=== PATIENT | female | born 1995 ===

== ENCOUNTER 2023-07-13 02:34 | Inpatient (IN) ==
[2023-07-13] MEDS ORDERED: OXYTOCIN 30 UNITS/NSS 30 UNITS/500 ML BAG IV PRN ×2 (06:04→16:46)
[2023-07-13] MEDS ORDERED: LIDOCAINE 1% LOCAL 20 ML VIAL INFIL PRN (06:04)
[2023-07-13] MEDS: LACTATED RINGER'S 1,000 ML IV PRN (06:27)
[2023-07-13 06:43] LABS: Hematocrit (blood only) 37.6 % (37.0-47.0); Hemoglobin 12.9 g/dl (12.0-16.0); Mean Corpuscular Hemoglobin 32.1 pg (25.0-34.0); Mean Corpuscular Hgb Conc 34.3 g/dL (32.0-36.0); Mean Corpuscular Volume 93.5 fL (80.0-100.0); Platelet Count 101 K/uL (130-400); RDW Coefficient of Variation 13.6 % (11.5-14.5); RDW Standard Deviation 46.4 fL (36.4-46.3); Red Blood Count 4.02 M/uL (4.20-5.40); White Blood Count 12.52 K/ul (4.8-10.8)
--- NOTE | 2023-07-13 06:58 | History & Physical Report ---
Date of Service July 13, 2023 Assessment & Plan (1) Thrombocytopenia affecting : (2) Active labor: Plan 27 yo at 40 1/7 wga presents in labor VSS Fetus cat 1 Labor - augment prn GBS neg GT - will check cbc epdiural desired Admission and Anticipated Discharge Date Admission Date: July 13, 2023 History of Present Illness Chief Complaint: 27 yo at 40 1/7 wga presents w/ ctx increasing in frequency and intensity. Slowly been worsening since appt this afternoon. Approx same amount of pink fluid and quality, no lof/vb otherwise. +FM PNI: Gest thrombocytopenia Hypothyroid Primary Care Provider: NO PCP Allergies Allergy/AdvReac Type Severity Reaction Status Date / Time No Known Allergies Allergy Verified 07/12/23 11:04 Home Medications Medication Instructions Recorded Confirmed Type levothyroxine See Rx Instructions .Route .COMPLEX 06/22/23 07/13/23 History magnesium 400 mg PO 1XD 06/22/23 07/13/23 History 21-iron fu-folic acid 1 tab PO 1XD 06/22/23 07/13/23 History [ Complete] Patient History Medical History (Updated 07/13/23 @ 06:57 by Roma Choi MD) History of chicken pox Varicella vaccination Surgical History (Updated 06/22/23 @ 15:26 by Hoda Ontiveros) Status post surgery dental implants Family History Mother Hypothyroid Denies family history of Ovarian cancer Breast cancer Colorectal cancer Social History (Updated 06/22/23 @ 15:04 by Hoda Ontiveros) Smoking Status: Never smoker Do You Dip or Chew Tobacco: No; Hx Alcohol Use: No Hx Substance Use: No Preferred Language: Yakut Communication Ability: Effective Defense Travel Administrator Required: No Beliefs That Will Affect Care: None marital status: marital status details: Faisal Elkins (29) [phone] Current Living Situation: Spouse Current Living Situation Comment: lives with spouse, cat-spouse changing litter current occupational status: employed current occupation: [employer] Other Information That Helps Us Care for You: No Feels Safe at Home: Yes Safety Concerns: Feels Safe At This Time Assistive Devices: None Physical Exam Genitourinary: OB Exam Monitor Tracing: + external FHT monitor used, + external uterine monitor used and + category I SVE 2/75/-2 > 3/75/-2 by nursing Results & Data Vital Signs (Past 12 Hours) Vital Signs Temp Pulse Resp BP Pulse Ox 07/13/23 06:51 75 99 07/13/23 06:46 84 100 07/13/23 06:41 78 100 07/13/23 06:32 71 116/65 07/13/23 06:31 16 07/13/23 06:31 97.7 F 16 07/13/23 02:59 97.5 F L 16 07/13/23 02:55 75 133/83 Laboratory Results Initial OB Labs 11/23/22 Blood Type & RH A positive Antibody Screen negative HCT/HGB 37.2/13.2 Platelets 142 Hep C IgG 13yrs+ Old negative Pap Test Chlamydia negative Gonorrhea negative Rubella immune RPR non-reactive Urine Culture/Screen negative HBsAg non-reactive HIV non- reactive MCV 88.2 Ultrasound 24-28 Week OB Labs 04/15/23 HCT/HGB 35.7/11.9 Diabetes Screen (1hr) 121 2HR GTT (if screen abnormal) Antibody Screen Urine Culture/Screen >100,000 klebsiella GBS neg Code Status & VTE Plan VTE Prophylaxis Plan VTE Prophylaxis will be ordered: No Reason for no VTE drug order: Treatment not indicated Coding Level of Care Code None Diagnoses Thrombocytopenia affecting O99.119; D69.6 Active labor
[2023-07-13] MEDS ORDERED: NALOXONE HCL 0.4 MG/1 ML VIAL/CARP IV PRN (07:03)
[2023-07-13] MEDS ORDERED: ROPIVACAINE 0.5% PF 5 MG/ML 20 ML VIAL EPI PRN (07:03)
[2023-07-13] MEDS ORDERED: SODIUM CHLORIDE 0.9% PF INJ 10 ML VIAL EPI PRN (07:03)
[2023-07-13] MEDS ORDERED: NALOXONE HCL 1 MG in SODIUM CHLORIDE 0.9% 1,000 ML IV PRN (07:03)
[2023-07-13] MEDS ORDERED: LIDOCAINE 2%/EPINEPHRINE 1:200,000 20 ML PF EPI STA (07:03)
[2023-07-13] MEDS ORDERED: BUPIVACAINE 0.25% PF 30 ML VIAL EPI PRN (07:03)
[2023-07-13] MEDS ORDERED: fentaNYL citrate PF 100 MCG/2 ML VIAL EPI PRN (07:03)
[2023-07-13] MEDS ORDERED: LIDOCAINE 2% MPF LOCAL 5 ML VIAL EPI PRN (07:03)
[2023-07-13] MEDS ORDERED: NALBUPHINE HCL 5 MG in SYRINGE 0 ML IV PRN (07:03)
[2023-07-13] MEDS ORDERED: fentaNYL citrate PF 100 MCG/2 ML VIAL EPI STA (07:03)
[2023-07-13] MEDS ORDERED: ePHEDrine sulfate 50 MG/ML AMP IV PRN (07:03)
[2023-07-13] MEDS ORDERED: SODIUM CHLORIDE 0.9% PF INJ 10 ML VIAL EPI STA (07:03)
[2023-07-13] MEDS ORDERED: BUPIVACAINE 0.25% PF 30 ML VIAL EPI STA (07:03)
[2023-07-13] MEDS ORDERED: diphenhydrAMINE 50 MG/ML VIAL IV PRN (07:03)
--- NOTE | 2023-07-13 07:06 | Anesthesiology Consultation ---
Date of Service July 13, 2023 Assessment & Plan Chart Review Chart Review: Patient NOT seen in Pre Admission Testing and Acceptable Risk for Labor Epidural Consults Requested none ASA ASA2 Proposed Anesthesia Anesthesia Type: Labor Epidural Risk / Benefits Reviewed With: PT / POA / Parent / Guardian, Accepts Plan and Informed Consent Obtained History Height/Weight Height: 5 ft 5 in Weight: 73.028 kg Allergies Allergy/AdvReac Type Severity Reaction Status Date / Time No Known Allergies Allergy Verified 07/12/23 11:04 Medications Home Medications Medication Instructions Recorded Confirmed Last Taken levothyroxine See Rx Instructions .Route .COMPLEX 06/22/23 07/13/23 07/12/23 05:30 magnesium 400 mg PO 1XD 06/22/23 07/13/23 07/12/23 21:00 21-iron fu-folic acid 1 tab PO 1XD 06/22/23 07/13/23 07/12/23 21:00 [ Complete] Active Medications Generic Name Dose Route Start Last Admin Trade Name Freq PRN Reason Stop Dose Admin Lactated Ringer's 1,000 mls @ 125 mls/hr 07/13/23 06:04 07/13/23 06:27 Lr IV 07/15/23 06:03 999 mls/hr .Q8H PRN Administration L&D Protocol Protocol NPO Date Last Intake of Fluids: 07/13/23 Time Last Intake of Fluids: 06:45 Date Last Intake of Solids: 07/12/23 Time Last Intake of Solids: 18:00 Past Medical History Medical History History of chicken pox Varicella vaccination Exercise / Class Metabolic Activity II 4-5 Yardwork/Stairs/Walk up hill Past Family History Family History Mother Hypothyroid Denies family history of Ovarian cancer Breast cancer Colorectal cancer Past Surgical History Surgical History Status post surgery dental implants Past Anesthesia History No Hx of Anesthesia Complications and No Family Hx of Anesthesia Complications History of PONV No Hx of PONV and No Hx of Motion Sickness Social History Smoking Status: Never smoker Do You Dip or Chew Tobacco: No Hx Alcohol Use: No Hx Substance Use: No Review of Systems ROS Unobtainable: All systems reviewed & are unremarkable except as noted in HPI & below Physical Exam Vital Signs Last Vital Signs Temp 36.5 C 07/13/23 06:31 Pulse 97 H 07/13/23 07:01 Resp 16 07/13/23 06:31 BP 116/65 07/13/23 06:32 Pulse Ox 100 07/13/23 07:01 ENMT Mouth: no TMJ abnormality Thyromental Distance: > or= 3.5 Finger Breadths Mallampati Class: II Neck normal visual inspection and trachea midline; neck extension not limited Respiratory normal respiratory effort Auscultation: lungs clear to auscultation bilaterally Cardiovascular Rate/Rhythm: regular rate and regular rhythm Heart Sounds: no murmur Musculoskeletal Spine: normal cervical ROM Extremities: full ROM of extremities Neurologic moves all extremities Psychiatric Orientation: alert and oriented x 3 Testing Laboratory Results 07/13/23 06:22
[2023-07-13] MEDS: LIDOCAINE 2%/EPINEPHRINE 1:200,000 20 ML PF ONE (07:24)
[2023-07-13] MEDS: BUPIVACAINE 0.25% PF 30 ML VIAL ONE (07:24)
[2023-07-13] MEDS: SODIUM CHLORIDE 0.9% PF INJ 10 ML VIAL ONE (07:24)
[2023-07-13] MEDS: fentANYL 2 MCG/ML BUPIVacaine 0.125%-NSS 100ML BAG ONE (07:25)
[2023-07-13] MEDS: fentaNYL citrate PF 100 MCG/2 ML VIAL ONE (07:48)
[2023-07-13] MEDS: ePHEDrine sulfate 50 MG/ML AMP ONE (07:48)
[2023-07-13] MEDS: OXYTOCIN 30 UNITS/NSS 30 UNITS/500 ML BAG IV PRN (09:31)
--- NOTE | 2023-07-13 10:20 | Labor Progress Brief Note ---
Date of Service July 13, 2023 Subjective Delayed entry due to concurrent patient care. Comfortable. ROM has occurred since prior check; pink/clear fluid on chux. Assessment & Plan (1) Active labor: Plan: Augment with pitocin (2) Thrombocytopenia affecting : Plan: Plts 101, epidural established. Admission and Anticipated Discharge Date Admission Date: July 13, 2023 Physical Exam Genitourinary: /-1 Clear fluid leakage [place] irreg, ~q4 Results & Data Vital Signs (Past 12 Hours) Vital Signs Temp Pulse Resp BP Pulse Ox 07/13/23 10:18 74 114/70 07/13/23 10:16 73 98 07/13/23 10:11 75 99 07/13/23 10:06 81 99 07/13/23 10:04 77 120/68 07/13/23 10:01 81 98 07/13/23 09:56 77 97 07/13/23 09:51 74 98 07/13/23 09:48 71 112/66 07/13/23 09:46 72 98 07/13/23 09:41 74 98 07/13/23 09:36 76 98 07/13/23 09:33 77 117/74 07/13/23 09:31 83 98 07/13/23 09:30 16 07/13/23 09:30 16 07/13/23 09:26 74 98 07/13/23 09:21 73 99 07/13/23 09:18 72 113/63 07/13/23 09:16 82 98 07/13/23 09:11 84 98 07/13/23 09:06 80 98 07/13/23 09:05 16 07/13/23 09:05 97.9 F 16 07/13/23 09:03 81 07/13/23 09:03 84 110/59 L 92 07/13/23 09:01 83 98 07/13/23 09:00 16 07/13/23 09:00 16 07/13/23 08:56 84 97 07/13/23 08:51 85 98 07/13/23 08:48 118 H 108/59 L 93 07/13/23 08:46 84 95 07/13/23 08:41 102 H 97 07/13/23 08:36 91 H 98 07/13/23 08:33 114 H 111/70 07/13/23 08:31 94 H 96 07/13/23 08:30 16 07/13/23 08:30 16 07/13/23 08:26 94 H 96 07/13/23 08:21 98 H 96 07/13/23 08:18 97 H 107/66 07/13/23 08:16 110 H 97 07/13/23 08:11 86 98 07/13/23 08:06 85 96 07/13/23 08:03 108 H 135/71 07/13/23 08:01 87 97 07/13/23 08:00 16 07/13/23 08:00 16 07/13/23 07:56 96 H 97 07/13/23 07:51 95 H 97 07/13/23 07:47 79 116/78 07/13/23 07:46 94 H 97 07/13/23 07:43 93 H 132/90 07/13/23 07:42 16 07/13/23 07:42 16 07/13/23 07:41 90 98 07/13/23 07:38 80 128/76 07/13/23 07:36 87 98 07/13/23 07:33 18 07/13/23 07:33 18 07/13/23 07:32 94 H 120/73 07/13/23 07:31 87 96 07/13/23 07:30 81 118/72 07/13/23 07:29 16 07/13/23 07:29 16 07/13/23 07:28 98 H 116/73 07/13/23 07:26 99 H 117/71 98 07/13/23 07:24 94 H 117/70 07/13/23 07:23 16 07/13/23 07:23 16 07/13/23 07:22 79 123/75 07/13/23 07:21 88 99 07/13/23 07:20 116 H 109/83 07/13/23 07:16 95 H 98 07/13/23 07:11 96 H 99 07/13/23 07:06 94 H 100 07/13/23 07:05 98.4 F 18 07/13/23 07:01 97 H 100 07/13/23 06:56 94 H 100 07/13/23 06:51 75 99 07/13/23 06:46 84 100 07/13/23 06:41 78 100 07/13/23 06:32 71 116/65 07/13/23 06:31 16 07/13/23 06:31 97.7 F 16 07/13/23 02:59 97.5 F L 07/13/23 02:55 75 133/83 Coding Level of Care Code None Diagnoses Active labor Thrombocytopenia affecting O99.119; D69.6
[2023-07-13] MEDS: fentANYL 2 MCG/ML BUPIVacaine 0.125%-NSS 100ML BAG EPI PRN (13:28)
--- NOTE | 2023-07-13 15:11 | Communication Note ---
Date of Service: July 13, 2023 Comfortable with epidural. Per RN recent cvx check 9cm. [facility] Cat 1 [place] Q2-3 Pit @ 10 Cont curr mgmt.
[2023-07-13] MEDS: METHYLERGONOVINE MALEATE 0.2 MG/ML AMP ONE (16:36)
[2023-07-13] MEDS: miSOPROStoL 200 MCG TAB ONE (16:37)
--- NOTE | 2023-07-13 16:42 | Delivery Summary ---
Vaginal Delivery Summary Date of Service July 13, 2023 Vaginal Delivery Summary DIAGNOSES: 1. [place] intrauterine at 40w1d gestation. 2. Spontaneous onset of labor. 3. Group B Streptococcus Neg. PROCEDURE: Spontaneous vaginal delivery and repair of 2nd deg laceration. SURGEON: Jill Colunga MD. AUTOMATION LEAD: None. QUANTITATIVE BLOOD LOSS: 152 mL. COMPLICATIONS: None. PLACENTA: Spontaneous and intact with a 3-vessel cord. DISPOSITION: Stable to labor and delivery. DESCRIPTION: The patient pushed well and brought the head to in DOA position. The infant's head was allowed to deliver with contraction force and no further active pushing, with the perineum protected during this time. There was no nuchal cord. The right shoulder was anterior. The shoulders and body delivered without any difficulty, and the infant was placed on the maternal abdomen. It was vigorous and moving all extremities, and making respiratory efforts. The cord was doubly clamped by the MD and then cut by the FOB. The placenta delivered spontaneously and was noted to be intact and with a 3VC. The cervix, vagina and perineum were examined and were found to have a shallow second-degree laceration which was repaired in the usual manner with vicryl suture. The fundus was firm and lochia minimal immediately after delivery. [facility] Vaginal Delivery Charge Vaginal Delivery Codes: 60442 global code for the antepartum, delivery, and post-
[2023-07-13] MEDS ORDERED: ACETAMINOPHEN 325 MG TAB PO PRN (16:46)
[2023-07-13] MEDS ORDERED: HYDROCORTISONE ACETATE 25 MG SUPP PR PRN (16:46)
[2023-07-13] MEDS ORDERED: BENZOCAINE 20% SPRY 85 APPLN/85 GM CAN EXT PRN (16:46)
[2023-07-13] MEDS ORDERED: DIPHTHER/TETAN/PERTUS Vaccine (Tdap, Adol/Adult) 0.5mL IM ONE (16:46)
[2023-07-13] MEDS ORDERED: bisacodyL 10 MG SUPP PR PRN (16:46)
[2023-07-13] MEDS ORDERED: LACTATED RINGER'S 1,000 ML IV SCH (16:46)
--- NOTE | 2023-07-13 17:57 | Anesthesia Procedure Note ---
Date of Service July 13, 2023 Anesthesia Post Epidural Note Vital Signs Vital Signs: Temp Pulse Resp BP Pulse Ox 37.1 C 91 H 18 122/74 96 07/13/23 16:45 07/13/23 17:33 07/13/23 16:45 07/13/23 17:33 07/13/23 16:36 Pain Intensity Abdomen: Pain Intensity: 8 Notes Mental Status: alert / awake / arousable and participated in evaluation Nausea / Vomiting: adequately controlled Pain: adequately controlled Airway Patency, RR, SpO2: stable & adequate BP & HR: stable & adequate Hydration State: stable & adequate Neuraxial Anesthesia: was administered and sensory block is resolving Anesthetic Complications: no major complications apparent Epidural: Removed without complications and With tip intact
[2023-07-13] MEDS: DOCUSATE SODIUM 100 MG CAP PO SCH (22:52)
[2023-07-13] MEDS: IBUPROFEN 600 MG TAB PO PRN (22:52)
--- NOTE | 2023-07-14 05:56 | Obstetrical Progress Note ---
Date of Service <Mushtaq Myers - Last Filed: 07/14/23 06:57> July 14, 2023 Assessment & Plan <Mushtaq Myers - Last Filed: 07/14/23 06:57> (1) Encounter for assessment: Plan 27 y/o PPD#1: Eating well, voiding well, ambulating well Vitals reviewed, WNL Pain well controlled with Motrin Routine post care - OOB, ambulation, diet progression as tolerated Will have 6 week follow up with Dr. Colunga <Jill Colunga MD - Last Filed: 07/14/23 07:33> (1) Encounter for assessment: Plan 27 y/o PPD#1: Eating well, voiding well, ambulating well Vitals reviewed, WNL Pain well controlled with Motrin Routine post care - OOB, ambulation, diet progression as tolerated Will have 6 week follow up with Dr. Colunga Subjective <Mushtaq Myers - Last Filed: 07/14/23 06:57> Ambulation: ambulating normally Voiding: no voiding problems Passing Gas:: Yes Diet Tolerance:: regular diet (initially with some nausea/vomiting, since resolved) Lochia:: Small Feeding Type:: breast feeding (supplementing with formula ) Pain well controlled with Motrin Notes small hematoma formation at site of laceration repair Review of Systems -Denies fever or chills -Denies dyspnea, chest pain, or palpitations -Denies dysuria -Denies headache or changes in vision Physical Exam <Mushtaq Myers - Last Filed: 07/14/23 06:57> General: Alert and oriented. No acute distress Cardiac: Regular rate and rhythm, no murmurs appreciated Respiratory: Lungs clear to auscultation bilaterally, No increased work of breathing Abdominal: Soft, non-tender, non-distended. Bowel sounds present. Uterus: Uterine fundus firm, palpable below umbilicus Extremities: No lower extremity edema, calves non-tender bilaterally Results & Data <Mushtaq Myers - Last Filed: 07/14/23 06:57> Vital Signs (Past 12 Hours) Vital Signs Temp Pulse Pulse Resp BP BP Pulse Ox 07/14/23 03:50 36.6 C 95 H 18 115/78 96 07/14/23 00:20 36.7 C 82 18 115/74 99 07/13/23 21:15 36.9 C 82 18 115/74 99 07/13/23 19:50 37.5 C 90 18 127/72 07/13/23 19:40 90 127/72 07/13/23 19:01 37.8 C H 18 07/13/23 19:01 07/13/23 18:45 37.4 C 16 07/13/23 18:45 83 129/73 07/13/23 18:33 105 H 127/75 07/13/23 18:18 103 H 127/72 07/13/23 18:03 99 H 120/69 O2 Del Method 07/14/23 03:50 Room Air 07/14/23 00:20 Room Air 07/13/23 21:15 Room Air 07/13/23 19:50 07/13/23 19:40 07/13/23 19:01 07/13/23 19:01 Room Air 07/13/23 18:45 07/13/23 18:45 07/13/23 18:33 07/13/23 18:18 07/13/23 18:03 Supervising Physician <Jill Colunga MD - Last Filed: 07/14/23 07:33> Co-Signing Physician Notes Resident Physician Supervision Note: I interviewed and examined the patient. Discussed with Dr. Myers and agree with findings and plan as documented in the note. Any exceptions or clarifications are listed here: [ ] Documented By: Jill Colunga MD, FACOG Resident Activity Tracking <Mushtaq Myers DO - Last Filed: 07/14/23 06:57> Resident Involvement: Resident Care Provided Care Provided: OB Delivery
[2023-07-14 06:43] LABS: Hematocrit (blood only) 34.7 % (37.0-47.0); Hemoglobin 11.7 g/dl (12.0-16.0); Mean Corpuscular Hemoglobin 31.8 pg (25.0-34.0); Mean Corpuscular Hgb Conc 33.7 g/dL (32.0-36.0); Mean Corpuscular Volume 94.3 fL (80.0-100.0); Mean Platelet Volume 9.1 fL (9.4-12.4); Platelet Count 118 K/uL (130-400); RDW Coefficient of Variation 13.6 % (11.5-14.5); RDW Standard Deviation 46.6 fL (36.4-46.3); Red Blood Count 3.68 M/uL (4.20-5.40); White Blood Count 13.58 K/ul (4.8-10.8)
[2023-07-14] MEDS: PRENATAL VITAMIN 1 TAB PO SCH (08:42)
[2023-07-14] MEDS ORDERED: Nursing to Pharmacy Communication SCH (11:30)
[2023-07-14] MEDS: LEVOTHYROXINE SODIUM 50 MCG TABLET PO ONE (12:17)
[2023-07-14] MEDS: bisacodyL 5 MG TABEC PO SCH (20:27)
--- NOTE | 2023-07-15 06:34 | Obstetrical Progress Note ---
Date of Service <Mushtaq Myers DO - Last Filed: 07/15/23 06:34> July 15, 2023 Assessment & Plan <Mushtaq Myers DO - Last Filed: 07/15/23 06:34> (1) Encounter for assessment: visit type: exam and care immediately after delivery Qualified Code(s): Z39.0 - Encounter for care and examination of mother immediately after delivery Plan 27 y/o PPD#2: Eating well, voiding well, ambulating well Vitals reviewed, WNL Pain well controlled with Motrin Routine post care - OOB, ambulation, diet progression as tolerated Will have 6 week follow up with Dr. Colunga <Rupali Martin MD, FACOG - Last Filed: 07/15/23 08:48> (1) Encounter for assessment: Subjective <Mushtaq Myers DO - Last Filed: 07/15/23 06:34> Ambulation: ambulating normally Voiding: no voiding problems Passing Gas:: Yes Diet Tolerance:: regular diet Lochia:: Small Feeding Type:: breast feeding Pain well controlled with Motrin Review of Systems -Denies fever or chills -Denies dyspnea, chest pain, or palpitations -Denies dysuria -Denies headache or changes in vision Physical Exam <Mushtaq Myers DO - Last Filed: 07/15/23 06:34> General: Alert and oriented. No acute distress Cardiac: Regular rate and rhythm, no murmurs appreciated Respiratory: Lungs clear to auscultation bilaterally, No increased work of breathing Abdominal: Soft, non-tender, non-distended. Bowel sounds present. Uterus: Uterine fundus firm, palpable below umbilicus Extremities: No lower extremity edema, calves non-tender bilaterally Results & Data <Mushtaq Myers DO - Last Filed: 07/15/23 06:34> Vital Signs (Past 12 Hours) Vital Signs Temp Pulse Resp BP Pulse Ox O2 Del Method 07/14/23 23:16 36.5 C 74 18 104/84 97 Room Air 07/14/23 20:15 36.6 C 83 18 100/67 Supervising Physician <Rupali Martin MD, FACOG - Last Filed: 07/15/23 08:48> Co-Signing Physician Notes Resident Physician Supervision Note: I interviewed and examined the patient. Discussed with Dr. Myers and agree with findings and plan as documented in the note. Any exceptions or clarifications are listed here: [None] Documented By: Rupali Martin MD, FACOG Resident Activity Tracking <Mushtaq Myers, - Last Filed: 07/15/23 06:34> Resident Involvement: Resident Care Provided Care Provided: OB Delivery
[2023-07-15] MEDS: LEVOTHYROXINE SODIUM 50 MCG TABLET PO SCH (06:42)
[2023-07-15 06:43] LABS: Hematocrit (blood only) 34.8 % (37.0-47.0); Hemoglobin 11.7 g/dl (12.0-16.0)
== END 2023-07-15 14:45 | disposition home or self-care (01) | DRG 806 ==
LOC: OPB 02:34 → 4S1 02:45 → 4E2 20:00